=== PATIENT | male | born 1950 | race African-American/Black ===

== ENCOUNTER 2016-09-13 12:46 | Emergency (ER) | payer MEDICARE ==
[~2016-09-13] VITALS: Ht 180.3 cm; Wt 80.0 kg
[~2016-09-13 12:46] MED LIST: [UNRECOGNIZED DRUG - REMARK]
[2016-09-13 15:12] LABS: CHLORIDE 105 mEq/L (98-107)
[2016-09-13 15:13] LABS: INR 1.1; PROTHROMBIN TIME 11.6 sec
[2016-09-13 15:15] LABS: CARBON DIOXIDE 25 mEq/L (21-32)
[2016-09-13 15:16] LABS: HEMATOCRIT. 37.6 % (42.0-52.0); HEMOGLOBIN. 12.9 g/dL (14.0-18.0); MEAN CORPUSCULAR HEMOGLOBIN 29.6 pg (28.0-32.0); MEAN CORPUSCULAR VOLUME 86.4 fL (80.0-94.0); MEAN PLATELET VOLUME 8.1 fl (7.4-10.4); PLATELET 207 x1000/uL (130-400); RED BLOOD CELL COUNT 4.36 mill/uL (4.7-6.1); RED CELL DISTRIBUTION WIDTH 13.3 % (11.6-14.6)
[2016-09-13 15:22] LABS: TROPONIN I < 0.02 ng/mL (0.00-0.04)
[2016-09-13 15:59] LABS: PLATELET ESTIMATE NORMAL
[2016-09-13 16:28] LABS: *AMPHETAMINES SCREEN URINE NEGATIVE (NEGATIVE); *BARBITURATES SCREEN URINE NEGATIVE (NEGATIVE); *BENZODIAZEPINES SCREEN URINE NEGATIVE (NEGATIVE); *COCAINE SCREEN URINE NEGATIVE (NEGATIVE); CANNABINOID URINE SCREEN NEGATIVE (NEGATIVE); METHADONE URINE SCREEN NEGATIVE (NEGATIVE); OPIATES URINE SCREEN NEGATIVE (NEGATIVE); PHENCYCLIDINE URINE SCREEN NEGATIVE (NEGATIVE)
[2016-09-13 16:48] VITALS: BP 171/111
== END 2016-09-13 16:54 | disposition home or self-care (01) ==
LOC: ER 15:37
DX: R07.9 Chest pain, unspecified (principal); I10 Essential (primary) hypertension; Z92.21 Personal history of antineoplastic chemotherapy; Z85.46 Personal history of malignant neoplasm of prostate
CPT/HCPCS: 36415; 71010; 80048; 80305; 83880; 84484; 85025; 85610; 93005; 99285

== ENCOUNTER 2016-10-17 12:20 | Inpatient (IN) | payer MEDICARE ==
[~2016-10-17] VITALS: Ht 172.7 cm; Wt 80.7 kg
[2016-10-17] MEDS ORDERED: SODIUM CHLORIDE 0.9% 1000ML BAG (SEPSIS BOLUS) IV ONE (13:00)
[2016-10-17 13:14] LABS: HEMATOCRIT. 36.2 % (42.0-52.0); HEMOGLOBIN. 12.1 g/dL (14.0-18.0); MEAN CORPUSCULAR HEMOGLOBIN 28.7 pg (28.0-32.0); MEAN PLATELET VOLUME 7.8 fl (7.4-10.4); PLATELET 208 x1000/uL (130-400); RED CELL DISTRIBUTION WIDTH 14.9 % (11.6-14.6)
[2016-10-17 13:22] LABS: INR 1.2; PROTHROMBIN TIME 12.7 sec (9.4-11.6)
[2016-10-17 13:28] LABS: CARBON DIOXIDE 22 mEq/L (21-32); CHLORIDE 105 mEq/L (98-107)
[2016-10-17 13:32] LABS: TROPONIN I < 0.02 ng/mL (0.00-0.04)
[2016-10-17 13:43] LABS: CLARITY URINE CLEAR (CLEAR); COLOR URINE DARK YELLOW (YELLOW); GLUCOSE URINE NEGATIVE (NEGATIVE); KETONES URINE TRACE (NEGATIVE); LEUKOCYTE ESTERASE URINE NEGATIVE (NEGATIVE); NITRITE URINE NEGATIVE (NEGATIVE); OCCULT BLOOD URINE TRACE (NEGATIVE); PH URINE 5.5 (4.5-8.0); PROTEIN URINE NEGATIVE (NEGATIVE); SPECIFIC GRAVITY URINE 1.023 (1.005-1.030)
[2016-10-17 14:08] LABS: NUCLEATED RED BLOOD CELLS 1 /100 WBC; PLATELET ESTIMATE NORMAL
[2016-10-17] MEDS ORDERED: VANCOMYCIN 1 G PREMIX 200 ML IV SCH (16:45)
[2016-10-17] MEDS ORDERED: PIPERACILLIN SODIUM/TAZOBACTAM 4.5 G in DEXT 5% WATER 100 ML IV SCH (16:45)
[2016-10-17] MEDS ORDERED: PIPERACILLIN SODIUM/TAZOBACTAM 4.5 G in DEXT 5% WATER 100 ML IV NR (17:00)
[2016-10-17 18:14] LABS: AMMONIA 26 uMol/L (<32)
[2016-10-17 18:42] LABS: *AMPHETAMINES SCREEN URINE NEGATIVE (NEGATIVE); *BARBITURATES SCREEN URINE NEGATIVE (NEGATIVE); *BENZODIAZEPINES SCREEN URINE NEGATIVE (NEGATIVE); *COCAINE SCREEN URINE NEGATIVE (NEGATIVE); CANNABINOID URINE SCREEN NEGATIVE (NEGATIVE); METHADONE URINE SCREEN PRESUMTIVE POSITIVE (NEGATIVE); OPIATES URINE SCREEN NEGATIVE (NEGATIVE); PHENCYCLIDINE URINE SCREEN NEGATIVE (NEGATIVE)
[2016-10-17] MEDS ORDERED: ACETAMINOPHEN 650MG SUPP PR PRN (22:00)
[2016-10-17] MEDS ORDERED: ACETAMINOPHEN 325MG TABLET PO PRN (22:00)
[2016-10-17] MEDS ORDERED: DIPHENHYDRAMINE 50MG/ML VIAL IV PRN (22:00)
[2016-10-17] MEDS ORDERED: NA PHOS,M-B/NA PHOS,DI-BA ENEMA 118ML PR PRN (22:00)
[2016-10-17] MEDS ORDERED: MAGNESIUM/ALUMINUM HYDROXIDE/SIMETHICONE 30ML UDC PO PRN (22:00)
[2016-10-17] MEDS ORDERED: ACETAMINOPHEN 650MG/20.3ML UDC GT PRN (22:00)
[2016-10-17] MEDS ORDERED: CLONIDINE 0.1MG TABLET PO PRN (22:00)
[2016-10-17] MEDS ORDERED: ONDANSETRON HCL 4MG/2ML VIAL IV PRN (22:00)
[2016-10-17] MEDS ORDERED: DOCUSATE SODIUM 100MG CAPSULE PO PRN (22:00)
[2016-10-17] MEDS ORDERED: HYDROCODONE/ACETAMINOPHEN 5/325MG TABLET PO PRN (22:00)
[2016-10-17] MEDS ORDERED: SODIUM CHLORIDE 0.45% 1,000 ML IV SCH (22:15)
[2016-10-17 23:28] LABS: CREATINE KINASE MB FRACTION 0.6 ng/mL (0.5-3.6)
[2016-10-18] VITALS (7 sets, daily range): BP systolic 95–173; BP diastolic 59–122
[2016-10-18] MEDS: SODIUM CHLORIDE 0.9% INJ 3ML FLUSH IVF SCH ×4 (00:12→20:48)
[2016-10-18] MEDS: PIPERACILLIN/TAZ 3.375G PREMIX 50 ML IV SCH ×4 (00:12→18:18)
[2016-10-18] MEDS ORDERED: LORAZEPAM 2MG/ML CPJ IV PRN (00:30)
[2016-10-18 07:55] LABS: CREATINE KINASE MB FRACTION 1.8 ng/mL (0.5-3.6)
[2016-10-18 08:23] LABS: BASOPHILS % 0.4 % (0.0-2.0); EOSINOPHILS % 0.1 % (0.0-5.0); HEMATOCRIT. 30.3 % (42.0-52.0); LYMPHOCYTES % 35.3 % (20.0-50.0); MEAN CORPUSCULAR HEMOGLOBIN 28.6 pg (28.0-32.0); MEAN CORPUSCULAR VOLUME 87.3 fL (80.0-94.0); MEAN PLATELET VOLUME 8.2 fl (7.4-10.4); MONOCYTES % 9.6 % (2.0-8.0); NEUTROPHILS % 54.6 % (40.0-76.0); PLATELET 162 x1000/uL (130-400); RED BLOOD CELL COUNT 3.47 mill/uL (4.7-6.1); RED CELL DISTRIBUTION WIDTH 14.8 % (11.6-14.6)
[2016-10-18 08:34] LABS: CARBON DIOXIDE 22 mEq/L (21-32); CHLORIDE 109 mEq/L (98-107)
[2016-10-18] MEDS: IPRATROPIUM/ALBUTEROL 0.5-3(2.5)MG/3ML NEB INH PRN ×2 (09:10→13:16)
[2016-10-18] MEDS: FUROSEMIDE 40MG/4ML VIAL IVP SCH (13:35)
[2016-10-18] MEDS: IPRATROPIUM/ALBUTEROL 0.5-3(2.5)MG/3ML NEB HHN SCH ×2 (17:06→19:53)
[2016-10-18] MEDS: METHYLPREDNISOLONE SOD SUCC 40 MG/ML VIAL IV SCH (18:18)
[2016-10-18] MEDS ORDERED: HALOPERIDOL LACTATE 5MG/ML VIAL IM PRN (18:45)
[2016-10-18] MEDS: METHADONE HCL 10MG TABLET PO SCH (20:47)
[2016-10-19] VITALS: BP 124/78
[2016-10-19] MEDS: IPRATROPIUM/ALBUTEROL 0.5-3(2.5)MG/3ML NEB HHN SCH ×6 (00:20→21:19)
[2016-10-19] MEDS: METHYLPREDNISOLONE SOD SUCC 40 MG/ML VIAL IV SCH ×3 (02:26→17:32)
[2016-10-19] MEDS: PIPERACILLIN/TAZ 3.375G PREMIX 50 ML IV SCH ×5 (02:26→23:52)
[2016-10-19] MEDS: SODIUM CHLORIDE 0.9% INJ 3ML FLUSH IVF SCH ×3 (02:27→21:03)
[2016-10-19 04:00] VITALS: BP 106/79
[2016-10-19 08:00] VITALS: BP 109/70
[2016-10-19] MEDS: FUROSEMIDE 40MG/4ML VIAL IVP SCH (09:47)
[2016-10-19] MEDS: METHADONE HCL 10MG TABLET PO SCH (09:48)
[2016-10-19 12:00] VITALS: BP 112/74
[2016-10-19 13:39] LABS: BASOPHILS % 0.3 % (0.0-2.0); EOSINOPHILS % 0.1 % (0.0-5.0); HEMATOCRIT. 29.3 % (42.0-52.0); HEMOGLOBIN. 9.8 g/dL (14.0-18.0); LYMPHOCYTES % 24.9 % (20.0-50.0); MEAN CORPUSCULAR HEMOGLOBIN 28.6 pg (28.0-32.0); MEAN CORPUSCULAR VOLUME 85.8 fL (80.0-94.0); MEAN PLATELET VOLUME 8.2 fl (7.4-10.4); NEUTROPHILS % 69.7 % (40.0-76.0); PLATELET 172 x1000/uL (130-400); RED BLOOD CELL COUNT 3.42 mill/uL (4.7-6.1); RED CELL DISTRIBUTION WIDTH 14.3 % (11.6-14.6)
[2016-10-19 14:24] LABS: CARBON DIOXIDE 24 mEq/L (21-32); CHLORIDE 106 mEq/L (98-107)
[2016-10-19 16:00] VITALS: BP 106/76
[2016-10-19] MEDS ORDERED: ALBU6.7H IH (19:49)
[2016-10-19] MEDS ORDERED: FURO-151 PO (19:49)
[2016-10-19] MEDS ORDERED: FLUT1DIS3 IH (19:49)
[2016-10-19] MEDS ORDERED: P50 PO (19:49)
[2016-10-19] MEDS ORDERED: TRAM50TA73 PO (19:50)
[2016-10-19 20:01] VITALS: BP 99/65
[2016-10-20 00:05] VITALS: BP 117/79
[2016-10-20] MEDS: IPRATROPIUM/ALBUTEROL 0.5-3(2.5)MG/3ML NEB HHN SCH ×5 (01:04→16:46)
[2016-10-20 04:00] VITALS: BP 92/61
[2016-10-20] MEDS: METHYLPREDNISOLONE SOD SUCC 40 MG/ML VIAL IV SCH ×3 (05:31→17:00)
[2016-10-20] MEDS: SODIUM CHLORIDE 0.9% INJ 3ML FLUSH IVF SCH ×2 (05:32→11:40)
[2016-10-20] MEDS: PIPERACILLIN/TAZ 3.375G PREMIX 50 ML IV SCH ×3 (05:32→18:00)
[2016-10-20 08:00] VITALS: BP 119/83
[2016-10-20] MEDS: METHADONE HCL 10MG TABLET PO SCH (09:11)
[2016-10-20] MEDS: FUROSEMIDE 40MG/4ML VIAL IVP SCH (09:12)
[2016-10-20 12:00] VITALS: BP 128/86
[2016-10-20] MEDS ORDERED: BICALUTAMIDE 50 MG TABLET PO SCH (12:00)
[2016-10-20 15:52] VITALS: BP 128/86
[2016-10-20 16:00] VITALS: BP 132/85
[2016-11-06] MEDS ORDERED: AMLO2.5T45 PO (07:44)
== END 2016-10-20 19:45 | disposition home or self-care (01) | DRG 291 ==
LOC: ER 12:34 → 7WST 19:16 → ENRESERV 19:33
PROVIDERS: ADMIT Internal Medicine; ATTEND Family Medicine
DX: I11.0 Hypertensive heart disease with heart failure (principal); E43 Unspecified severe protein-calorie malnutrition; G92 Toxic encephalopathy; E87.2 Acidosis; F11.20 Opioid dependence, uncomplicated; J44.1 Chronic obstructive pulmonary disease with (acute) exacerbation; N39.0 Urinary tract infection, site not specified; F03.90 Unspecified dementia, unspecified severity, without behavioral disturbance, psychotic disturbance, mood disturbance, and anxiety; R53.1 Weakness; I50.9 Heart failure, unspecified; F17.210 Nicotine dependence, cigarettes, uncomplicated; R62.7 Adult failure to thrive; G89.29 Other chronic pain; M54.5 Low back pain; R74.8 Abnormal levels of other serum enzymes; Z85.830 Personal history of malignant neoplasm of bone; Z68.27 Body mass index [BMI] 27.0-27.9, adult; D63.8 Anemia in other chronic diseases classified elsewhere; M48.02 Spinal stenosis, cervical region; M48.04 Spinal stenosis, thoracic region; Z59.0 Homelessness; Z85.46 Personal history of malignant neoplasm of prostate; M47.9 Spondylosis, unspecified; M46.90 Unspecified inflammatory spondylopathy, site unspecified
CPT/HCPCS: 36415; 70450; 71010; 72141; 72146; 72148; 76705; 80053; 80305; 81001; 82140; 82550; 82553; 82962; 83605; 83880; 84153; 84484; 85025; 85610; 87040; 87086; 93005; 94640; 96361; 96365; 96367; 97162; 99291; G0482; J1200; J1940; J2060; J2543; J2920; J3370; J7030; J7060; J7620